=== PATIENT | female | born 1945 | race Caucasian/White ===

== ENCOUNTER → 2024-10-18 13:49 | Outpatient (REF) | payer MEDICARE, OTHER, SELFPAY | LOC: WDC 13:49 | PROVIDERS: ATTENDING PHYSICIAN Physician Assistant | DX: N95.9 Unspecified menopausal and perimenopausal disorder (principal); Z12.31 Encounter for screening mammogram for malignant neoplasm of breast | CPT/HCPCS: 77063; 77067; 77080 ==

== ENCOUNTER → 2024-10-29 10:59 | Outpatient (REF) | payer MEDICARE, OTHER, SELFPAY ==
[2024-10-29 11:58] LABS: % Basophils 0.3 % (0-2); % Eosinophils 2.6 % (0-6); % Immature Granulocytes 0.7 % (0-0.5); % Lymphocytes 21.6 % (20.5-51.1); % Monocytes 8.2 % (1.7-9.3); % Neutrophils 66.6 % (42.2-75.2); Absolute Eosinophils 0.2 10^3/uL (0-0.7); Absolute Lymphocytes 1.3 10^3/uL (1.2-3.4); Absolute Monocytes 0.5 10^3/uL (0.1-0.6); Absolute Neutrophils 3.9 10^3/uL (1.4-6.5); Hematocrit 31.5 % (37.0-47.0); Hemoglobin 9.8 g/dL (12.0-16.0); Mean Corp Hgb Conc. 31.1 g/dL (33.0-37.0); Mean Corpuscular Hgb 31.8 pg (27.0-31.0); Mean Corpuscular Volume 102.3 fL (81.0-99.0); Mean Platelet Volume 9.5 fL (7.4-10.4); Nucleated Red Blood Cells % 0 %; Platelet Count 201 10^3/uL (130-400); Red Blood Cell Count 3.08 10^6/uL (4.20-5.40); Red Cell Dist. Width 13.8 % (11.5-14.5); Reticulocyte Count 1.7 % (0.4-2.8); White Blood Cell Count 5.8 10^3/uL (4.8-10.8)
[2024-10-29 12:13] LABS: ALT (SGPT) 23 U/L (0-35); AST (SGOT) 30 U/L (14-36); Albumin 4.5 g/dl (3.5-5.0); Alkaline Phosphatase 54 U/L (38-126); Blood Urea Nitrogen 18 mg/dl (7-17); Calcium 9.3 mg/dl (8.4-10.2); Carbon Dioxide 25 mmol/L (22-30); Chloride 103 mmol/L (98-107); Glucose 109 mg/dl (70-99); Iron 91 ug/dl (37-170); LDH 233 U/L (120-246); Potassium 4.5 mmol/L (3.5-5.1); Sodium 140 mmol/L (135-145); Total Bilirubin 0.2 mg/dl (0.2-1.3); Total Protein 6.5 g/dl (6.3-8.2); eGFR > 60.00
[2024-10-29 12:19] LABS: Erythrocyte Sed Rate 32 mm/hour (0-20)
[2024-10-29 12:23] LABS: Percent Saturation 24 % (20-50); Total Iron Binding Capacity 370 ug/dl (265-497)
[2024-10-29 12:42] LABS: Ferritin 63.2 ng/ml (11.1-264.0)
[2024-10-29 13:13] LABS: Folate > 20.0 ng/ml (2.76-20); Vitamin B12 787 pg/ml (239-931)
== END ==
LOC: REG 10:59
PROVIDERS: ATTENDING PHYSICIAN Nurse Practitioner Primary Care; FAMILY PHYSICIAN Physician Assistant
DX: D50.8 Other iron deficiency anemias (principal); D51.9 Vitamin B12 deficiency anemia, unspecified; R63.4 Abnormal weight loss; R10.9 Unspecified abdominal pain
CPT/HCPCS: 36415; 80053; 82607; 82728; 82746; 83010; 83540; 83550; 83615; 83921; 85025; 85045; 85652; 86880

== ENCOUNTER → 2024-11-04 13:37 | Outpatient (REF) | payer MEDICARE, OTHER, SELFPAY | LOC: RAD 13:37 | PROVIDERS: ATTENDING PHYSICIAN Nurse Practitioner Primary Care; FAMILY PHYSICIAN Physician Assistant | DX: R10.9 Unspecified abdominal pain (principal); R63.4 Abnormal weight loss | CPT/HCPCS: 74178; Q9967 ==

== ENCOUNTER → 2025-06-09 06:51 | Outpatient (REF) | payer MEDICARE, OTHER, SELFPAY ==
[2025-06-09 07:21] VITALS: BP 137/71; BP_SYST 69
[2025-06-09 07:33] LABS: Hematocrit 28.3 % (37.0-47.0); Hemoglobin 9.3 g/dL (12.0-16.0); Mean Corp Hgb Conc. 32.9 g/dL (33.0-37.0); Mean Corpuscular Volume 96.3 fL (81.0-99.0); Nucleated Red Blood Cells % 0 %; Platelet Count 184 10^3/uL (130-400); Red Cell Dist. Width 14.6 % (11.5-14.5)
[2025-06-09 07:44] LABS: INR 0.96; PT 13.1 Sec (11.4-14.6)
[2025-06-09] MEDS: NSS (PRESERVATIVE FREE) 0.25 ML IV (08:00)
[2025-06-09] MEDS: ATIVAN 0.5 MG IV (08:01)
[2025-06-09] MEDS: FLUSH (NSS) 1 FLUSH IV (08:02)
[2025-06-09 08:55] VITALS: BP 128/61
== END ==
LOC: RADI 06:51
PROVIDERS: ATTENDING PHYSICIAN Internal Medicine Hematology & Oncology
DX: C90.00 Multiple myeloma not having achieved remission (principal); D51.9 Vitamin B12 deficiency anemia, unspecified; D50.8 Other iron deficiency anemias; D68.8 Other specified coagulation defects
CPT/HCPCS: 36415; 38222; 77012; 85025; 85610; 88305; 88311; 88312; 88313

== ENCOUNTER → 2025-07-14 16:20 | Outpatient (REF) | payer MEDICARE, OTHER, SELFPAY | LOC: RAD 16:20 | PROVIDERS: ATTENDING PHYSICIAN Internal Medicine Hematology & Oncology; FAMILY PHYSICIAN Physician Assistant | DX: D50.8 Other iron deficiency anemias (principal); D51.9 Vitamin B12 deficiency anemia, unspecified; R10.9 Unspecified abdominal pain; D64.9 Anemia, unspecified; C90.00 Multiple myeloma not having achieved remission | CPT/HCPCS: 77075 ==

== ENCOUNTER → 2025-07-24 07:43 | Outpatient (REF) | payer MEDICARE, OTHER, SELFPAY ==
[2025-07-24 09:14] LABS: Hematocrit 27.9 % (37.0-47.0); Hemoglobin 8.8 g/dL (12.0-16.0); Mean Corp Hgb Conc. 31.5 g/dL (33.0-37.0); Mean Corpuscular Volume 97.2 fL (81.0-99.0); Nucleated Red Blood Cells % 0.4 %; Platelet Count 188 10^3/uL (130-400); Red Cell Dist. Width 14.6 % (11.5-14.5)
[2025-07-24 10:37] LABS: ALT (SGPT) 23 U/L (0-35); AST (SGOT) 30 U/L (14-36); Albumin 4.6 g/dl (3.5-5.0); Alkaline Phosphatase 58 U/L (38-126); Blood Urea Nitrogen 13 mg/dl (7-17); Calcium 8.8 mg/dl (8.4-10.2); Carbon Dioxide 25 mmol/L (22-30); Chloride 108 mmol/L (98-107); Glucose 91 mg/dl (70-99); Potassium 4.1 mmol/L (3.5-5.1); Sodium 140 mmol/L (135-145); Total Protein 6.6 g/dl (6.3-8.2); eGFR > 60.00
== END ==
LOC: REG 07:43
PROVIDERS: ATTENDING PHYSICIAN Internal Medicine Hematology & Oncology; FAMILY PHYSICIAN Physician Assistant
DX: D50.8 Other iron deficiency anemias (principal); D51.9 Vitamin B12 deficiency anemia, unspecified; R63.4 Abnormal weight loss; R10.9 Unspecified abdominal pain; D64.9 Anemia, unspecified; C90.00 Multiple myeloma not having achieved remission
CPT/HCPCS: 36415; 80053; 85025

== ENCOUNTER → 2025-07-25 09:56 | Outpatient (REF) | payer MEDICARE, OTHER, SELFPAY ==
[2025-07-25 12:31] LABS: Hepatitis B Surface Antigen Negative (Negative)
== END ==
LOC: OIDL 09:56
PROVIDERS: ATTENDING PHYSICIAN Internal Medicine Hematology & Oncology
DX: D50.8 Other iron deficiency anemias (principal); D51.9 Vitamin B12 deficiency anemia, unspecified; R63.4 Abnormal weight loss; R10.9 Unspecified abdominal pain; D64.9 Anemia, unspecified; C90.00 Multiple myeloma not having achieved remission
CPT/HCPCS: 86704; 86706; 87340

== ENCOUNTER → 2025-07-31 07:29 | Outpatient (REF) | payer MEDICARE, OTHER, SELFPAY ==
[2025-07-31 08:51] LABS: Hematocrit 28.3 % (37.0-47.0); Hemoglobin 8.9 g/dL (12.0-16.0); Mean Corp Hgb Conc. 31.4 g/dL (33.0-37.0); Mean Corpuscular Volume 95.3 fL (81.0-99.0); Nucleated Red Blood Cells % 0.5 %; Red Cell Dist. Width 15.2 % (11.5-14.5)
[2025-07-31 09:26] LABS: Platelet Count 40 10^3/uL (130-400)
[2025-07-31 09:46] LABS: ALT (SGPT) 29 U/L (0-35); AST (SGOT) 29 U/L (14-36); Albumin 4.3 g/dl (3.5-5.0); Alkaline Phosphatase 70 U/L (38-126); Blood Urea Nitrogen 15 mg/dl (7-17); Calcium 8.8 mg/dl (8.4-10.2); Carbon Dioxide 23 mmol/L (22-30); Chloride 106 mmol/L (98-107); Glucose 90 mg/dl (70-99); Potassium 3.6 mmol/L (3.5-5.1); Sodium 139 mmol/L (135-145); Total Protein 6.5 g/dl (6.3-8.2); eGFR > 60.00
== END ==
LOC: REG 07:29
PROVIDERS: ATTENDING PHYSICIAN Internal Medicine Hematology & Oncology; FAMILY PHYSICIAN Physician Assistant
DX: D50.8 Other iron deficiency anemias (principal); D51.9 Vitamin B12 deficiency anemia, unspecified; R63.4 Abnormal weight loss; R10.9 Unspecified abdominal pain; D64.9 Anemia, unspecified; C90.00 Multiple myeloma not having achieved remission
CPT/HCPCS: 36415; 80053; 85025

== ENCOUNTER → 2025-08-07 08:54 | Outpatient (REF) | payer MEDICARE, OTHER, SELFPAY ==
[2025-08-07 10:07] LABS: Hematocrit 26.2 % (37.0-47.0); Hemoglobin 8.3 g/dL (12.0-16.0); Mean Corp Hgb Conc. 31.7 g/dL (33.0-37.0); Mean Corpuscular Volume 95.6 fL (81.0-99.0); Nucleated Red Blood Cells % 0 %; Platelet Count 116 10^3/uL (130-400); Red Cell Dist. Width 15.8 % (11.5-14.5)
[2025-08-07 11:24] LABS: ALT (SGPT) 21 U/L (0-35); AST (SGOT) 24 U/L (14-36); Albumin 4.0 g/dl (3.5-5.0); Alkaline Phosphatase 61 U/L (38-126); Blood Urea Nitrogen 20 mg/dl (7-17); Calcium 8.9 mg/dl (8.4-10.2); Carbon Dioxide 24 mmol/L (22-30); Chloride 106 mmol/L (98-107); Glucose 87 mg/dl (70-99); Potassium 4.2 mmol/L (3.5-5.1); Total Protein 6.2 g/dl (6.3-8.2); eGFR > 60.00
[2025-08-07 11:48] LABS: Sodium 136 mmol/L (135-145)
== END ==
LOC: REG 08:54
PROVIDERS: ATTENDING PHYSICIAN Internal Medicine Hematology & Oncology; FAMILY PHYSICIAN Physician Assistant
DX: D50.8 Other iron deficiency anemias (principal); D51.9 Vitamin B12 deficiency anemia, unspecified; R63.4 Abnormal weight loss; R10.9 Unspecified abdominal pain; D64.9 Anemia, unspecified; C90.00 Multiple myeloma not having achieved remission
CPT/HCPCS: 36415; 80053; 85025

== ENCOUNTER → 2025-08-08 14:50 | Outpatient (REF) | payer MEDICARE, OTHER, SELFPAY ==
[2025-08-08 15:56] LABS: Hematocrit 23.3 % (37.0-47.0); Hemoglobin 7.7 g/dL (12.0-16.0); Mean Corp Hgb Conc. 33.0 g/dL (33.0-37.0); Mean Corpuscular Volume 94.7 fL (81.0-99.0); Nucleated Red Blood Cells % 0.5 %; Platelet Count 120 10^3/uL (130-400); Red Cell Dist. Width 15.6 % (11.5-14.5)
[2025-08-08 16:00] LABS: Iron 64 ug/dl (37-170)
[2025-08-08 16:09] LABS: Total Iron Binding Capacity 347 ug/dl (265-497)
[2025-08-08 19:52] LABS: Ferritin 93.0 ng/ml (11.1-264.0)
== END ==
LOC: CLAB 14:50
PROVIDERS: ATTENDING PHYSICIAN Internal Medicine Hematology & Oncology
DX: R63.4 Abnormal weight loss (principal); D50.8 Other iron deficiency anemias; D51.9 Vitamin B12 deficiency anemia, unspecified; R10.9 Unspecified abdominal pain; D64.9 Anemia, unspecified; C90.00 Multiple myeloma not having achieved remission
CPT/HCPCS: 36415; 82728; 83540; 83550; 85025

== ENCOUNTER → 2025-08-14 08:14 | Outpatient (REF) | payer MEDICARE, OTHER, SELFPAY ==
[2025-08-14 08:57] LABS: Hematocrit 26.2 % (37.0-47.0); Hemoglobin 8.5 g/dL (12.0-16.0); Mean Corp Hgb Conc. 32.4 g/dL (33.0-37.0); Mean Corpuscular Volume 96.7 fL (81.0-99.0); Nucleated Red Blood Cells % 0.6 %; Platelet Count 156 10^3/uL (130-400); Red Cell Dist. Width 16.5 % (11.5-14.5)
[2025-08-14 11:21] LABS: ALT (SGPT) 18 U/L (0-35); AST (SGOT) 20 U/L (14-36); Albumin 4.1 g/dl (3.5-5.0); Alkaline Phosphatase 61 U/L (38-126); Blood Urea Nitrogen 10 mg/dl (7-17); Calcium 8.4 mg/dl (8.4-10.2); Carbon Dioxide 24 mmol/L (22-30); Chloride 104 mmol/L (98-107); Glucose 89 mg/dl (70-99); HDL Cholesterol 60 mg/dl; LDL Cholesterol, Calculated 77 mg/dl; Potassium 3.9 mmol/L (3.5-5.1); Sodium 137 mmol/L (135-145); Total Protein 6.2 g/dl (6.3-8.2); Very Low Density Lipoprotein 22 mg/dl (0-30); eGFR > 60.00
[2025-08-14 11:41] LABS: TSH 3.72 uIU/ml (0.47-4.68)
== END ==
LOC: REG 08:14
PROVIDERS: ATTENDING PHYSICIAN Internal Medicine Hematology & Oncology; FAMILY PHYSICIAN Physician Assistant
DX: D50.8 Other iron deficiency anemias (principal); D51.9 Vitamin B12 deficiency anemia, unspecified; R63.4 Abnormal weight loss; R10.9 Unspecified abdominal pain; D64.9 Anemia, unspecified; C90.00 Multiple myeloma not having achieved remission; I10 Essential (primary) hypertension; Z00.00 Encounter for general adult medical examination without abnormal findings; E03.9 Hypothyroidism, unspecified; E78.5 Hyperlipidemia, unspecified; F32.9 Major depressive disorder, single episode, unspecified
CPT/HCPCS: 80053; 80061; 84439; 84443; 85025

== ENCOUNTER → 2025-08-21 07:37 | Outpatient (REF) | payer MEDICARE, OTHER, SELFPAY ==
[2025-08-21 08:43] LABS: ALT (SGPT) 19 U/L (0-35); AST (SGOT) 18 U/L (14-36); Albumin 3.7 g/dl (3.5-5.0); Alkaline Phosphatase 55 U/L (38-126); Blood Urea Nitrogen 8 mg/dl (7-17); Calcium 8.0 mg/dl (8.4-10.2); Carbon Dioxide 25 mmol/L (22-30); Chloride 106 mmol/L (98-107); Glucose 92 mg/dl (70-99); Potassium 3.3 mmol/L (3.5-5.1); Sodium 138 mmol/L (135-145); Total Protein 5.7 g/dl (6.3-8.2); eGFR > 60.00
[2025-08-21 09:27] LABS: Hematocrit 27.5 % (37.0-47.0); Hemoglobin 8.7 g/dL (12.0-16.0); Mean Corp Hgb Conc. 31.6 g/dL (33.0-37.0); Mean Corpuscular Volume 99.3 fL (81.0-99.0); Nucleated Red Blood Cells % 2.9 %; Platelet Count 156 10^3/uL (130-400); Red Cell Dist. Width 18.5 % (11.5-14.5)
== END ==
LOC: REG 07:37
PROVIDERS: ATTENDING PHYSICIAN Internal Medicine Hematology & Oncology; FAMILY PHYSICIAN Physician Assistant
DX: D50.8 Other iron deficiency anemias (principal); D51.9 Vitamin B12 deficiency anemia, unspecified; R63.4 Abnormal weight loss; R10.9 Unspecified abdominal pain; D64.9 Anemia, unspecified; C90.00 Multiple myeloma not having achieved remission
CPT/HCPCS: 36415; 80053; 85025

== ENCOUNTER → 2025-08-28 07:32 | Outpatient (REF) | payer MEDICARE, OTHER, SELFPAY ==
[2025-08-28 08:25] LABS: ALT (SGPT) 21 U/L (0-35); AST (SGOT) 19 U/L (14-36); Albumin 3.5 g/dl (3.5-5.0); Alkaline Phosphatase 62 U/L (38-126); Blood Urea Nitrogen 7 mg/dl (7-17); Calcium 8.0 mg/dl (8.4-10.2); Carbon Dioxide 26 mmol/L (22-30); Chloride 105 mmol/L (98-107); Glucose 90 mg/dl (70-99); Potassium 3.8 mmol/L (3.5-5.1); Sodium 136 mmol/L (135-145); Total Protein 5.6 g/dl (6.3-8.2); eGFR > 60.00
[2025-08-28 09:06] LABS: Hematocrit 29.1 % (37.0-47.0); Hemoglobin 9.2 g/dL (12.0-16.0); Mean Corp Hgb Conc. 31.6 g/dL (33.0-37.0); Mean Corpuscular Volume 101.0 fL (81.0-99.0); Nucleated Red Blood Cells % 1.4 %; Platelet Count 147 10^3/uL (130-400); Red Cell Dist. Width 19.3 % (11.5-14.5)
== END ==
LOC: REG 07:32
PROVIDERS: ATTENDING PHYSICIAN Internal Medicine Hematology & Oncology; FAMILY PHYSICIAN Physician Assistant
DX: D50.8 Other iron deficiency anemias (principal); D51.9 Vitamin B12 deficiency anemia, unspecified; R63.4 Abnormal weight loss; R10.9 Unspecified abdominal pain; D64.9 Anemia, unspecified; C90.00 Multiple myeloma not having achieved remission
CPT/HCPCS: 36415; 80053; 85025

== ENCOUNTER → 2025-09-03 07:34 | Outpatient (REF) | payer MEDICARE, OTHER, SELFPAY ==
[2025-09-03 09:53] LABS: ALT (SGPT) 25 U/L (0-35); AST (SGOT) 21 U/L (14-36); Albumin 3.5 g/dl (3.5-5.0); Alkaline Phosphatase 71 U/L (38-126); Blood Urea Nitrogen 9 mg/dl (7-17); Calcium 7.9 mg/dl (8.4-10.2); Carbon Dioxide 23 mmol/L (22-30); Chloride 108 mmol/L (98-107); Glucose 108 mg/dl (70-99); Potassium 4.4 mmol/L (3.5-5.1); Sodium 138 mmol/L (135-145); Total Protein 5.8 g/dl (6.3-8.2); eGFR > 60.00
[2025-09-03 10:13] LABS: Hematocrit 31.5 % (37.0-47.0); Hemoglobin 9.9 g/dL (12.0-16.0); Mean Corp Hgb Conc. 31.4 g/dL (33.0-37.0); Mean Corpuscular Volume 100.3 fL (81.0-99.0); Nucleated Red Blood Cells % 0 %; Platelet Count 205 10^3/uL (130-400); Red Cell Dist. Width 18.8 % (11.5-14.5)
== END ==
LOC: REG 07:34
PROVIDERS: ATTENDING PHYSICIAN Internal Medicine Hematology & Oncology; FAMILY PHYSICIAN Physician Assistant
DX: D50.8 Other iron deficiency anemias (principal); D51.9 Vitamin B12 deficiency anemia, unspecified; R63.4 Abnormal weight loss; R10.9 Unspecified abdominal pain; D64.9 Anemia, unspecified; C90.00 Multiple myeloma not having achieved remission
CPT/HCPCS: 36415; 80053; 85025

== ENCOUNTER → 2025-09-11 08:09 | Outpatient (REF) | payer MEDICARE, OTHER, SELFPAY ==
[2025-09-11 09:08] LABS: Hematocrit 32.1 % (37.0-47.0); Hemoglobin 10.1 g/dL (12.0-16.0); Mean Corp Hgb Conc. 31.5 g/dL (33.0-37.0); Mean Corpuscular Volume 98.5 fL (81.0-99.0); Nucleated Red Blood Cells % 0 %; Platelet Count 318 10^3/uL (130-400); Red Cell Dist. Width 18.6 % (11.5-14.5)
[2025-09-11 10:33] LABS: ALT (SGPT) 22 U/L (0-35); AST (SGOT) 20 U/L (14-36); Albumin 3.6 g/dl (3.5-5.0); Alkaline Phosphatase 68 U/L (38-126); Blood Urea Nitrogen 9 mg/dl (7-17); Calcium 8.2 mg/dl (8.4-10.2); Carbon Dioxide 27 mmol/L (22-30); Chloride 107 mmol/L (98-107); Glucose 90 mg/dl (70-99); Potassium 3.9 mmol/L (3.5-5.1); Sodium 138 mmol/L (135-145); Total Protein 5.8 g/dl (6.3-8.2); eGFR > 60.00
== END ==
LOC: REG 08:09
PROVIDERS: ATTENDING PHYSICIAN Internal Medicine Hematology & Oncology; FAMILY PHYSICIAN Physician Assistant
DX: D50.8 Other iron deficiency anemias (principal); D51.9 Vitamin B12 deficiency anemia, unspecified; R63.4 Abnormal weight loss; R10.9 Unspecified abdominal pain; D64.9 Anemia, unspecified; C90.00 Multiple myeloma not having achieved remission
CPT/HCPCS: 36415; 80053; 85025

== ENCOUNTER → 2025-09-18 07:53 | Outpatient (REF) | payer MEDICARE, OTHER, SELFPAY ==
[2025-09-18 09:11] LABS: Hematocrit 35.8 % (37.0-47.0); Hemoglobin 10.9 g/dL (12.0-16.0); Mean Corp Hgb Conc. 30.4 g/dL (33.0-37.0); Mean Corpuscular Volume 102.9 fL (81.0-99.0); Nucleated Red Blood Cells % 0 %; Platelet Count 275 10^3/uL (130-400); Red Cell Dist. Width 18.6 % (11.5-14.5)
[2025-09-18 09:44] LABS: ALT (SGPT) 24 U/L (0-35); AST (SGOT) 20 U/L (14-36); Albumin 3.8 g/dl (3.5-5.0); Alkaline Phosphatase 60 U/L (38-126); Blood Urea Nitrogen 8 mg/dl (7-17); Calcium 8.4 mg/dl (8.4-10.2); Carbon Dioxide 27 mmol/L (22-30); Chloride 105 mmol/L (98-107); Glucose 91 mg/dl (70-99); Potassium 4.1 mmol/L (3.5-5.1); Sodium 136 mmol/L (135-145); Total Protein 6.2 g/dl (6.3-8.2); eGFR > 60.00
== END ==
LOC: REG 07:53
PROVIDERS: ATTENDING PHYSICIAN Internal Medicine Hematology & Oncology; FAMILY PHYSICIAN Physician Assistant
DX: D50.8 Other iron deficiency anemias (principal); D51.9 Vitamin B12 deficiency anemia, unspecified; R63.4 Abnormal weight loss; R10.9 Unspecified abdominal pain; D64.9 Anemia, unspecified; C90.00 Multiple myeloma not having achieved remission
CPT/HCPCS: 36415; 80053; 85025

== ENCOUNTER → 2025-09-24 07:50 | Outpatient (REF) | payer MEDICARE, OTHER, SELFPAY ==
[2025-09-24 09:56] LABS: ALT (SGPT) 25 U/L (0-35); AST (SGOT) 20 U/L (14-36); Albumin 3.7 g/dl (3.5-5.0); Alkaline Phosphatase 56 U/L (38-126); Blood Urea Nitrogen 6 mg/dl (7-17); Calcium 7.9 mg/dl (8.4-10.2); Carbon Dioxide 27 mmol/L (22-30); Chloride 104 mmol/L (98-107); Glucose 78 mg/dl (70-99); Potassium 3.5 mmol/L (3.5-5.1); Sodium 138 mmol/L (135-145); Total Protein 5.7 g/dl (6.3-8.2); eGFR > 60.00
[2025-09-24 10:06] LABS: Hematocrit 37.6 % (37.0-47.0); Hemoglobin 11.3 g/dL (12.0-16.0); Mean Corp Hgb Conc. 30.1 g/dL (33.0-37.0); Mean Corpuscular Volume 104.4 fL (81.0-99.0); Nucleated Red Blood Cells % 0 %; Platelet Count 211 10^3/uL (130-400); Red Cell Dist. Width 18.1 % (11.5-14.5)
== END ==
LOC: REG 07:50
PROVIDERS: ATTENDING PHYSICIAN Internal Medicine Hematology & Oncology; FAMILY PHYSICIAN Physician Assistant
DX: D50.8 Other iron deficiency anemias (principal); D51.9 Vitamin B12 deficiency anemia, unspecified; R63.4 Abnormal weight loss; R10.9 Unspecified abdominal pain; D64.9 Anemia, unspecified; C90.00 Multiple myeloma not having achieved remission
CPT/HCPCS: 36415; 80053; 85025

== ENCOUNTER → 2025-10-02 08:01 | Outpatient (REF) | payer MEDICARE, OTHER, SELFPAY ==
[2025-10-02 09:19] LABS: Hematocrit 38.2 % (37.0-47.0); Hemoglobin 12.4 g/dL (12.0-16.0); Mean Corp Hgb Conc. 32.5 g/dL (33.0-37.0); Mean Corpuscular Volume 100.3 fL (81.0-99.0); Nucleated Red Blood Cells % 0 %; Platelet Count 252 10^3/uL (130-400); Red Cell Dist. Width 16.6 % (11.5-14.5)
[2025-10-02 12:35] LABS: ALT (SGPT) 28 U/L (0-35); AST (SGOT) 22 U/L (14-36); Albumin 4.0 g/dl (3.5-5.0); Alkaline Phosphatase 55 U/L (38-126); Blood Urea Nitrogen 9 mg/dl (7-17); Calcium 8.7 mg/dl (8.4-10.2); Carbon Dioxide 28 mmol/L (22-30); Chloride 104 mmol/L (98-107); Glucose 86 mg/dl (70-99); Iron 82 ug/dl (37-170); Potassium 4.2 mmol/L (3.5-5.1); Sodium 139 mmol/L (135-145); Total Protein 6.1 g/dl (6.3-8.2); eGFR > 60.00
[2025-10-02 12:44] LABS: Total Iron Binding Capacity 315 ug/dl (265-497)
[2025-10-02 13:08] LABS: Ferritin 234.0 ng/ml (11.1-264.0)
== END ==
LOC: REG 08:01
PROVIDERS: ATTENDING PHYSICIAN Internal Medicine Hematology & Oncology; FAMILY PHYSICIAN Physician Assistant
DX: D50.8 Other iron deficiency anemias (principal); D51.9 Vitamin B12 deficiency anemia, unspecified; R63.4 Abnormal weight loss; R10.9 Unspecified abdominal pain; D64.9 Anemia, unspecified; C90.00 Multiple myeloma not having achieved remission; D46.9 Myelodysplastic syndrome, unspecified
CPT/HCPCS: 36415; 80053; 82728; 82784; 83521; 83540; 83550; 84155; 84165; 85025; 86334

== ENCOUNTER → 2025-10-09 07:19 | Outpatient (REF) | payer MEDICARE, OTHER, SELFPAY ==
[2025-10-09 08:27] LABS: Hematocrit 39.7 % (37.0-47.0); Hemoglobin 12.4 g/dL (12.0-16.0); Mean Corp Hgb Conc. 31.2 g/dL (33.0-37.0); Mean Corpuscular Volume 100.5 fL (81.0-99.0); Nucleated Red Blood Cells % 0 %; Platelet Count 249 10^3/uL (130-400); Red Cell Dist. Width 16.0 % (11.5-14.5)
[2025-10-09 09:01] LABS: ALT (SGPT) 29 U/L (0-35); AST (SGOT) 21 U/L (14-36); Albumin 4.0 g/dl (3.5-5.0); Alkaline Phosphatase 57 U/L (38-126); Blood Urea Nitrogen 7 mg/dl (7-17); Calcium 8.5 mg/dl (8.4-10.2); Carbon Dioxide 29 mmol/L (22-30); Chloride 102 mmol/L (98-107); Glucose 83 mg/dl (70-99); Potassium 3.9 mmol/L (3.5-5.1); Sodium 134 mmol/L (135-145); Total Protein 6.2 g/dl (6.3-8.2); eGFR > 60.00
== END ==
LOC: REG 07:19
PROVIDERS: ATTENDING PHYSICIAN Internal Medicine Hematology & Oncology; FAMILY PHYSICIAN Physician Assistant
DX: D50.8 Other iron deficiency anemias (principal); D51.9 Vitamin B12 deficiency anemia, unspecified; R63.4 Abnormal weight loss; R10.9 Unspecified abdominal pain; D64.9 Anemia, unspecified; C90.00 Multiple myeloma not having achieved remission
CPT/HCPCS: 36415; 80053; 85025

== ENCOUNTER → 2025-10-16 07:33 | Outpatient (REF) | payer MEDICARE, OTHER, SELFPAY ==
[2025-10-16 08:14] LABS: Hematocrit 38.0 % (37.0-47.0); Hemoglobin 12.3 g/dL (12.0-16.0); Mean Corp Hgb Conc. 32.4 g/dL (33.0-37.0); Mean Corpuscular Volume 97.2 fL (81.0-99.0); Nucleated Red Blood Cells % 0 %; Platelet Count 210 10^3/uL (130-400); Red Cell Dist. Width 15.5 % (11.5-14.5)
[2025-10-16 08:47] LABS: ALT (SGPT) 25 U/L (0-35); AST (SGOT) 22 U/L (14-36); Albumin 4.0 g/dl (3.5-5.0); Alkaline Phosphatase 52 U/L (38-126); Blood Urea Nitrogen 7 mg/dl (7-17); Calcium 8.5 mg/dl (8.4-10.2); Carbon Dioxide 28 mmol/L (22-30); Chloride 107 mmol/L (98-107); Glucose 80 mg/dl (70-99); Potassium 4.1 mmol/L (3.5-5.1); Sodium 137 mmol/L (135-145); Total Protein 6.1 g/dl (6.3-8.2); eGFR > 60.00
== END ==
LOC: REG 07:33
PROVIDERS: ATTENDING PHYSICIAN Internal Medicine Hematology & Oncology; FAMILY PHYSICIAN Physician Assistant
DX: D50.8 Other iron deficiency anemias (principal); D51.9 Vitamin B12 deficiency anemia, unspecified; R63.4 Abnormal weight loss; R10.9 Unspecified abdominal pain; D64.9 Anemia, unspecified; C90.00 Multiple myeloma not having achieved remission
CPT/HCPCS: 36415; 80053; 85025

== ENCOUNTER 2025-10-22 09:50 | Inpatient (IN) | payer MEDICARE, OTHER, SELFPAY ==
[2025-10-21 09:03] VITALS: BP 118/67
[2025-10-21 09:37] VITALS: BMI 26.2
--- NOTE | 2025-10-21 09:40 | ED.MUSCINJ ---
HPI-Injury
<Guillermo Chaves PA-C - Last Filed: 10/21/25 14:20>
General
Chief Complaint: Fall
Source: patient
Exam Limitations: none
Time Seen by Provider: 10/21/25 09:23
History of Present Illness-Injury
Initial Injury comments:
80 year old female with history of multiple myeloma presents with pain to left arm and foot after tripping and falling into a hard chair this morning. No head strike. No thinners. No chest or abdominal pain. No other complaints at this time.
Past History
<DAINA Bailey Last Filed: 10/21/25 14:20>
Past History
ED Past Medical History: HTN, Hypercholesterolemia and Hypothyroidism
ED Past Surgical History: None
Social History
Tobacco: Non-smoker
Alcohol: None
Drug: None
Personal:
Living: with family
Phy Exam
<Guillermo Chaves PA-C - Last Filed: 10/21/25 14:20>
Physical Exam
Physical Exam:
General: Uncomfortable appearing female no acute respiratory distress
HEENT: Normal cephalic atraumatic
Heart: Regular rate and rhythm
Lungs: Clear no wheeze
Musculoskeletal exam: Spine is nontender. There is swelling and tenderness about the humerus on the left side. The left foot is also tender over the distal fibula and dorsal lateral foot. There is overlying ecchymosis on the foot.
Vascular: 2+ radial pulse left wrist function to radial nerve intact to left hand
Neurologic: Good sensation to the left hand and foot
Injury Course
<Guillermo Chaves PA-C - Last Filed: 10/21/25 14:20>
Orders/Labs/Results
Orders:
Orders
10/21/25 09:38
HYDROmorphone [Dilaudid] 0.5 mg IV NOW STA
CR Ankle - Left Min 3 Views Urgent
Comment:
Reason For Exam: fall
CR Foot - Left Min 3 Views Urgent
Comment:
Reason For Exam: fall
CR Humerus - Left Min 2 Views* Urgent
Comment:
Reason For Exam: fall
10/21/25 10:13
CR Hip - RT w/wo Pel 2-3 Vw* Urgent
Comment:
Reason For Exam: pain after fall
Include a pelvis x-ray?: Yes
10/21/25 12:03
HYDROmorphone [Dilaudid] 0.5 mg IV NOW STA
10/21/25 13:49
Complete Blood Count/With Diff Urgent
Comprehensive Metabolic Panel Urgent
Abnormal Lab Results
10/21/25
13:49
WBC 2.0 L* 10^3/uL
(4.8-10.8)
RBC 3.55 L 10^6/uL
(4.20-5.40)
Hgb 11.2 L g/dL
(12.0-16.0)
Hct 33.7 L %
(37.0-47.0)
MCH 31.5 H pg
(27.0-31.0)
RDW 15.2 H %
(11.5-14.5)
Absolute Neuts (auto) 1.2 L 10^3/uL
(1.4-6.5)
Absolute Lymphs (auto) 0.3 L 10^3/uL
(1.2-3.4)
Lymphocytes % 16.3 L %
(20.5-51.1)
Monocytes % 19.7 H %
(1.7-9.3)
Sodium 132 L mmol/L
(135-145)
Glucose 103 H mg/dl
(70-99)
Calcium 7.8 L mg/dl
(8.4-10.2)
Total Protein 5.3 L g/dl
(6.3-8.2)
10/21/25 13:49
10/21/25 13:49
<Franky Sneed, DO - Last Filed: 10/21/25 14:11>
Orders/Labs/Results
Orders:
Orders
10/21/25 09:38
HYDROmorphone [Dilaudid] 0.5 mg IV NOW STA
CR Ankle - Left Min 3 Views Urgent
Comment:
Reason For Exam: fall
CR Foot - Left Min 3 Views Urgent
Comment:
Reason For Exam: fall
CR Humerus - Left Min 2 Views* Urgent
Comment:
Reason For Exam: fall
10/21/25 10:13
CR Hip - RT w/wo Pel 2-3 Vw* Urgent
Comment:
Reason For Exam: pain after fall
Include a pelvis x-ray?: Yes
10/21/25 12:03
HYDROmorphone [Dilaudid] 0.5 mg IV NOW STA
10/21/25 13:49
Complete Blood Count/With Diff Urgent
Comprehensive Metabolic Panel Urgent
Abnormal Lab Results
10/21/25
13:49
WBC 2.0 L* 10^3/uL
(4.8-10.8)
RBC 3.55 L 10^6/uL
(4.20-5.40)
Hgb 11.2 L g/dL
(12.0-16.0)
Hct 33.7 L %
(37.0-47.0)
MCH 31.5 H pg
(27.0-31.0)
RDW 15.2 H %
(11.5-14.5)
Absolute Neuts (auto) 1.2 L 10^3/uL
(1.4-6.5)
Absolute Lymphs (auto) 0.3 L 10^3/uL
(1.2-3.4)
Lymphocytes % 16.3 L %
(20.5-51.1)
Monocytes % 19.7 H %
(1.7-9.3)
Sodium 132 L mmol/L
(135-145)
Glucose 103 H mg/dl
(70-99)
Calcium 7.8 L mg/dl
(8.4-10.2)
Total Protein 5.3 L g/dl
(6.3-8.2)
10/21/25 13:49
10/21/25 13:49
<Guillermo Chaves PA-C - Last Filed: 10/21/25 14:20>
MDM/Problems Addressed
Differential Diagnosis Includes:
Left arm and foot and ankle pain after mechanical fall. Consider fracture versus contusion versus sprains. X-rays left humerus left ankle and foot pending.
<Guillermo Chaves PA-C - Last Filed: 10/21/25 14:20>
*Pulse Oximetry
SaO2: 100
Oxygen Mode of Delivery: Room air
Patient hypoxic: no
*Critical Care Note
Total Time (30-74mins, 75-104mins- exclusive of procedures): Not Applicable
<Guillermo Chaves PA-C - Last Filed: 10/21/25 14:20>
Update Note
Update Note:
X-rays demonstrate spiral fracture of midshaft of left humerus as well as a fracture of the base of the fifth metatarsal as well as nondisplaced fracture of the distal fibula on the left side. I reviewed these findings with orthopedics who saw the
x-rays. They recommended splint application and sling for the left upper extremity as well as weightbearing as tolerated within the boot to the left leg. I applied the boot to the left leg I applied a coaptation to the left arm. She is unable to
safely function and ambulate at home. Will keep in hospital for further treatment
ED Attending Note
<Guillermo Chaves PA-C - Last Filed: 10/21/25 14:20>
-
Portions of this chart may have been created with voice recognition software.� Occasional wrong word or��sound alike� substitutions may have occurred due to the inherent limitations of voice recognition software.
<Franky Sneed DO - Last Filed: 10/21/25 14:11>
ED Attending Note
Patient seen and examined by attending physician: Yes
I performed the substantive portion of visit, reviewed & personally made and approve the management plan that is documented in note by myself or BETITO.: Yes
ED Attending Note:
Seen with PA examined independently 80-year-old female history of myeloma followed by Dr. Billy hypertension slip and fall she has a midshaft humerus fracture fibular fracture metatarsal fracture will check labs, may require admission for analgesia
physical therapy and placement
Discharge Plan
Departure
Patient Disposition: Admit
Date of Disposition: 10/21/25
Time of Disposition: 14:19
Presentation/result/management discussed w/ accepting MD/DO: Hospitalist
Discharge Problem:
Fracture of humeral shaft, closed, Fracture of 5th metatarsal, Fracture of distal end of fibula
Prescriptions:
No Action
atorvastatin [Lipitor] 40 mg Tablet
40 mg PO DAILY
amlodipine [Norvasc] 5 mg Tablet
5 mg PO DAILY
levothyroxine [Synthroid] 88 mcg Tablet
88 mcg PO DAILY
sertraline 50 mg Tablet
50 mg PO QPM
Theragen Tablet
1 tab PO DAILY
PreserVision AREDS 2,148 mcg-113 mg-45 mg-17.4mg Tablet
1 tab PO BID
acyclovir 400 mg Tablet
400 mg PO DAILY
dexamethasone 4 mg Tablet
4 mg PO DIRECTED
Rx Instructions:
take one tablet the day of treat, 2 days after (due monday and monday)
lenalidomide 15 mg Capsule
15 mg PO DIRECTED
Rx Instructions:
take for 21 days on and 7 days off, patient takes around dinner time
Referrals:
Tonia Hopson PA-C [Family Provider, Internal Medicine]
Interventions
Interventions:
*Risk Screen - Suicide Last Done: 10/21/25 09:03
*General Assessment Last Done: 10/21/25 09:03
*Neglect/Abuse Screening Last Done: 10/21/25 10:20
*ED- Fall Risk Assessment Last Done: 10/21/25 09:03
*ED COVID-19 Vaccine History Last Done: 10/21/25 09:03
*ED Influenza Vaccine History Last Done: 10/21/25 09:03
ED-Musculoskeletal Assessment Last Done: 10/21/25 09:37
ED- Neurological Assessment Last Done: 10/21/25 09:37
ED-Skin Assessment Last Done: 10/21/25 09:37
Discharge Date and Time
Print Language: SETSWANA
[2025-10-21 09:48] VITALS: BP 128/64
[2025-10-21] MEDS: DILAUDID 0.5 MG IV ×2 (09:51→12:10)
[2025-10-21 10:00] VITALS: BP 101/52
[2025-10-21 14:13] LABS: ALT (SGPT) 27 U/L (0-35); AST (SGOT) 23 U/L (14-36); Albumin 3.5 g/dl (3.5-5.0); Alkaline Phosphatase 51 U/L (38-126); Blood Urea Nitrogen 11 mg/dl (7-17); Calcium 7.8 mg/dl (8.4-10.2); Carbon Dioxide 26 mmol/L (22-30); Chloride 102 mmol/L (98-107); Estimated Creatinine Clearance 61 ml/min; Glucose 103 mg/dl (70-99); Hematocrit 33.7 % (37.0-47.0); Hemoglobin 11.2 g/dL (12.0-16.0); Mean Corp Hgb Conc. 33.2 g/dL (33.0-37.0); Mean Corpuscular Volume 94.9 fL (81.0-99.0); Nucleated Red Blood Cells % 0 %; Platelet Count 166 10^3/uL (130-400); Potassium 3.8 mmol/L (3.5-5.1); Red Cell Dist. Width 15.2 % (11.5-14.5); Sodium 132 mmol/L (135-145); Total Protein 5.3 g/dl (6.3-8.2); eGFR > 60.00
--- NOTE | 2025-10-21 14:21 | HPS.HSE ---
Family Physician
-
Family Physician: Tonia Hopson
Chief Complaint
-
mechanical fall
History of Present Illness
Patient is a 80-year-old female with past medical history significant for hypertension, hyperlipidemia, GERD, depression and multiple myeloma who presented to [facility] ED for evaluation post mechanical fall. Patient reports that she tripped an fell
after placing ruber soled slippers on. She landed on a chair. Denies a head strike or LOC. She complains of pain to left and and foot.
Medical History
Past Medical History
Past Medical History: Reports Other
Additional Past Medical History:
hypertension
hyperlipidemia
GERD
depression
multiple myeloma
macular degeneration
iron deficiency anemia
Past Surgical History: Reports Other
Additional Past Surgical History:
Breast biopsy-benign
colonoscopy(2007)
D and C
cataract surgery
Social History
Tobacco: Non-smoker
Alcohol: Occasional
Drug: None
Living: With Family
Employment: Retired
Family History
Family History: Not pertinent
Allergies / Home Medications
Allergies reflects when Allergies were last updated in [employer].
Home Medications with original date entered in [employer]
Allergy/Medication List:
Allergies
Allergy/AdvReac Type Severity Reaction Status Date / Time
No Known Allergies Allergy Verified 10/21/25 09:06
Home Medications
amlodipine 5 mg tablet (Norvasc) 5 mg PO DAILY Blood Pressure 11/23/23
atorvastatin 40 mg tablet (Lipitor) 40 mg PO DAILY High Cholesterol 11/23/23
levothyroxine 88 mcg tablet (Synthroid) 88 mcg PO DAILY Thyroid 11/23/23
sertraline 50 mg tablet 50 mg PO QPM Mental Health/Anxiety 11/23/23
therapeutic multivitamin 1 tab PO DAILY Supplement 11/23/23
vitamins A,C,W-bvhz-yqknrr 2,148 mcg-113 mg-45 mg-17.4 mg tablet (PreserVision AREDS) 1 tab PO BID Supplement 11/23/23
acyclovir 400 mg tablet 400 mg PO DAILY 10/21/25
dexamethasone 4 mg tablet 4 mg PO DIRECTED 10/21/25
lenalidomide 15 mg capsule 15 mg PO DIRECTED 10/21/25
Review of Systems
-
History Source: Patient
Constitutional: Denies Fever or Chills
EENT: Denies Sore Throat
Respiratory: Denies Cough, Hemoptysis or Trouble Breathing
Cardiac: Denies Chest Pain, Diaphoresis, Palpitations or Syncope
Abdomen/GI: Denies Abdominal Pain, Nausea, Vomiting or Diarrhea
: Denies Dysuria, Frequency or Urgency
Musculoskeletal: Reports Other (Left arm and left foot pain )
Skin: Denies Rash
Neurological: Denies Dizzy, Headache, Weakness or Numbness
Endocrine: Denies Polyuria or Polydipsia
Physical Exam
Vital Signs
Vital Signs
Pulse Resp BP Pulse Ox
59 20 101/52 100
10/21/25 10:15 10/21/25 10:15 10/21/25 10:00 10/21/25 10:15
Physical Exam
General: Well Developed, Well Nourished, No Apparent Distress, Comfortable and Conversant
HEENT: NormoCephalic, Moist mucous membranes, PERRLA, Nose Appears Normal and Ears Appear Normal
Respiratory: Clear and Non Labored Respirations; No Wheezes, Rales or Rhonchi
Cardiac: Regular Rhythm; No Murmur, Rub, Gallop or Peripheral Edema
GI: Soft, Non Tender, Non Distended and Normal Bowel Sounds
Musculoskeletal: No Clubbing, No Cyanosis and Other (left upper extremity splint and sling in place; Left lower extremity boot in place )
Skin: Warm and IV/Catheter Site
Neuro: Awake and AO x 3
Psych: Calm and Intact Judgment/Insight
Laboratory Results
-
10/21/25 13:49
10/21/25 13:49
Laboratory Results
Total Bilirubin 0.4 mg/dl (0.2-1.3) 10/21/25 13:49
AST 23 U/L (14-36) 10/21/25 13:49
ALT 27 U/L (0-35) 10/21/25 13:49
Alkaline Phosphatase 51 U/L (38-126) 10/21/25 13:49
Data Reviewed
-
Diagnostic Radiology: Report Reviewed by me
Lab Data: Labs Reviewed by me (WBC 2.0, hgb 11.2, hct 33.7, Na 132, Ca 7.8 (corrected to 8.2) )
Impression/Plan
-
IMPRESSION/PLAN:
#mechanical fall
#Fracture of 5th metatarsal
#Fracture of distal end of fibula
#Fracture of humeral shaft
WBC 2.0, hgb 11.2, hct 33.7, Na 132, Ca 7.8 (corrected to 8.2)
Left Ankle/Foot x-ray: There is a fracture through the distal left fibula without significant displacement.
Fracture involving the proximal base of the left fifth metatarsal bone, with mild distraction.
Left Humerus x-ray: Fracture of the proximal to mid shaft of the left humerus.
Right Hip x-ray: No evidence of acute fracture or dislocation.
If there are persistent clinical symptoms and further imaging evaluation is desired, consider CT or MRI.
- Admit to med/surg
- ED placed splint and sling to LUE and boot to LLE per ortho recommendations
- weight bearing as tolerated
- Consult orthopedics
- Consult PT/OT
- Consult case management
#hypertension
patient reports has been on hold as she has been more hypotensive during treatments, last took about 6 weeks ago
- hold amlodipine
- monitor VS
#hyperlipidemia
- continue atorvastatin
#hypothyroidism
- continue levothyroxine
#depression
- continue sertraline
#multiple myeloma
follows with Dr. Billy
middle of second round of treatment
- continue acyclovir
- continue to follow up out patient
#GERD
#macular degeneration
#iron deficiency anemia
Code status: full code
DVT prophylaxis: heparin sq
--- NOTE | 2025-10-21 14:26 | W.PN.UPDATE ---
Update Note
Progress Note Update
This note serves as an addendum to the H&P by finisher accordion BETITO�
Odalis Dunlap
HPI
80F
PHX myeloma, HTN, Hypercholesterolemia and Hypothyroidism
Seen at ER
- report tripped suggestive of , mechanical fall and landed on Lt side
- denied LoC
- denied head strike
- sustained Lt humerus fracture + left fibular fracture + left 5th metatarsal fracture.
- Per ER , Ortho suggested splint placement to arm and boot with weight bearing as tolerated to foot and planning on seeing the patient as outpatient
- she is unable to function safely at home with multiple injuries.
Relevant VS
Pulse Resp BP Pulse Ox
59 20 101/52 100
10/21/25 10:15 10/21/25 10:15 10/21/25 10:00 10/21/25 10:15
PE
Gen: uncomfortable due to acute pain
HEENT: anicteric , atraumatic
Neck: supple
Lungs: CTA
Cor: RRR
Abdomen:�soft benign
AUTOMOTIVE REFINISH TECHNICIAN: Grossly intact
MS:
Non tender Spin
swelling and tenderness about the humerus on the left side
eft foot is also tender over the distal fibula and dorsal lateral foot with overlying ecchymosis
Psych:nl mood and & affect
Relevant data�
10/02/25 10/16/25 10/21/25
08:19 07:43 13:49
WBC 2.3 L* 3.8 L 2.0 L*
Hgb 12.4 12.3 11.2 L
Plt Count 252 210 166 D
10/21/25
13:49
Sodium 132 L
Potassium 3.8
Creatinine 0.7
eGFR > 60.00
Hip and Pelvis XR:
No evidence of acute fracture or dislocation.
L Humerus XR:
Fracture of the proximal to mid shaft of the left humerus.
Lt Ankle and Foot XR:
There is a fracture through the distal left fibula without significant displacement.
Fracture involving the proximal base of the left fifth metatarsal bone, with mild distraction.
No prior hospitalist admission:
ASSESSMENT & PLAN
Acute Lt humerus fracture + left fibular fracture + left 5th metatarsal fracture due to mechanical fall
- Acute gait dysfunction - unable to function safely at home with multiple injuries.
- Lives with family
- Per ER - Ortho suggested splint placement to arm and boot with weight bearing as tolerated to foot and planning on seeing the patient as outpatient
- Fx set protocol for supportive care
- PT/OT
PMHX
Myeloma with chr leucopenia - Known to Dr Gong, middle of the secnd cycle of chemo ( next week ) - trend CBC
pHTN - c/w STEAM POWER PLANT OPERATOR Amlodipine with hold index for for SBP
Hypercholesterolemia: c/w STEAM POWER PLANT OPERATOR Atorvastatin
Hypothyroidism: STEAM POWER PLANT OPERATOR LT4
DVT Px:
Code: Full
OBS MS
--- NOTE | 2025-10-21 15:56 | CM ---
Chart reviewed and spoke with patient , and dtr Mariella
MONTES reviewed
Lives in a [address]
Independent with ADLs and ambulation
no DME
Dtr lives a couple of houses down
PCP Dr. Tonia Hoposn
Pharmacy [facility]
no hx of VN
no hx of SNF
DCP is to go home
Family can drive her home
Cm will continue to follow up for any dcp needs
[2025-10-21 16:45] VITALS: BP 139/61
[2025-10-21] MEDS: NON-FORMULARY ITEM 15 MG PO (18:10)
[2025-10-21] MEDS: ZOLOFT 50 MG PO (18:12)
[2025-10-21] MEDS: HEPARIN 5000 UNITS SC (18:18)
[2025-10-21] MEDS: OCUVITE SOFTGEL 1 CAP PO (21:07)
[2025-10-21] MEDS: ROXICODONE 5 MG PO (21:15)
[2025-10-21 23:05] VITALS: BP 140/53
[2025-10-22] VITALS (14 sets, daily range): BP systolic 75–132; BP diastolic 45–67
[2025-10-22] MEDS: HEPARIN 5000 UNITS SC ×3 (00:11→18:19)
[2025-10-22] MEDS: SYNTHROID 88 MCG PO (06:03)
--- NOTE | 2025-10-22 08:01 | W.PN.UPDATE ---
Update Note
Progress Note Update
Patient seen on AM rounds. Full consult note to follow. Tentative plan for OR today for left humeral shaft ORIF under the direction of Dr. Marion pending medical clearance. Consent signed and on patient chart. NPO for now. Abx ordered.
[2025-10-22] MEDS: ZOVIRAX 400 MG PO (09:06)
[2025-10-22] MEDS: THERAGRAN 1 TABLET PO (09:07)
[2025-10-22] MEDS: OSCAL CAL 500 500 MG PO ×3 (09:07→21:10)
[2025-10-22] MEDS: LIPITOR 40 MG PO (09:07)
[2025-10-22] MEDS: OCUVITE SOFTGEL 1 CAP PO ×2 (09:07→21:08)
--- NOTE | 2025-10-22 09:23 | CON.ORTHO ---
Consultation
-
Date/Time Consultation Requested: 10/21/2025; time unknown
Date/Time Consultation Performed: 10/22/2025; 0700
Requesting Provider: Dr. Weiss
Performing Provider: Candice Meyers PA-C for Dr. Selma Chowdhury
Reason for Consultation: Left humeral shaft fracture; Left fifth metatarsal fracture
Consultation - Orthopedics
History
Ms. Selby is an 80 year old female with PMH of hypertension, hyperlipidemia, GERD, depression and multiple myeloma seen today following a fall. She reports she tripped and fell at home and fell forward into a chair. She reports immediate onset of pain
in her left arm and foot. Her family was able to get her up off the ground and transported to ED. X-rays in the emergency department revealed fractures of the distal fibula and base of the fifth metatarsal, as well as a fracture of her humerus.
She was placed in a coaptation splint and a CAM boot in the ED. She is resting comfortably in bed this morning. She reports the pain in her foot and ankle is well controlled at present, but she does continue with pain with any movement of her left
arm. She denies pain elsewhere.
She lives at home with her and reports her daughter lives nearby. She denies PMH of DVT, CVA, PR or DM. She is currently receiving treatment for multiple myeloma. She denies known history of difficulty with anesthesia. She does not take any
daily blood thinners.
Allergies / Home Medications
Allergy/AdvReac Type Severity Reaction Status Date / Time
No Known Allergies Allergy Verified 10/21/25 09:06
�Medication �Instructions �Recorded
amlodipine 5 mg tablet (Norvasc) 5 mg PO DAILY Blood Pressure 11/23/23
atorvastatin 40 mg tablet (Lipitor) 40 mg PO DAILY High Cholesterol 11/23/23
levothyroxine 88 mcg tablet 88 mcg PO DAILY Thyroid 11/23/23
(Synthroid)
sertraline 50 mg tablet 50 mg PO QPM Mental Health/Anxiety 11/23/23
therapeutic multivitamin 1 tab PO DAILY Supplement 11/23/23
vitamins A,C,F-deig-qvvkdf 2,148 1 tab PO BID Supplement 11/23/23
mcg-113 mg-45 mg-17.4 mg tablet
(PreserVision AREDS)
acyclovir 400 mg tablet 400 mg PO DAILY infection 10/21/25
prevention
calcium 600 mg capsule 600 mg PO TID Supplement 10/21/25
dexamethasone 4 mg tablet 4 mg PO DIRECTED Cancer 10/21/25
lenalidomide 15 mg capsule 15 mg PO DIRECTED Cancer 10/21/25
Vital Signs / Lab Results
Temp Pulse Resp BP Pulse Ox
98.4 F 72 17 132/49 97
10/22/25 07:36 10/22/25 07:36 10/22/25 07:36 10/22/25 07:36 10/22/25 07:36
10/21/25 13:49
10/21/25 13:49
XR Foot and Ankle IMPRESSION:
There is a fracture through the distal left fibula without significant displacement.
Fracture involving the proximal base of the left fifth metatarsal bone, with mild distraction.
XR Left Humerus IMPRESSION:
Fracture of the proximal to mid shaft of the left humerus.
Directed exam of the left upper extremity reveals splint and sling in place. Good color and warmth of fingers. Patient able to wiggle fingers, flex and extend wrist. Sensation intact to light touch. Capillary refill <2 seconds.
Directed exam of the left lower extremity reveals edema and ecchymosis about the left foot and ankle. Tenderness to palpation over the distal fibula, ATFL and base of the fifth metatarsal. Sensation intact to light touch. Capillary refill <2
seconds.
Assessment / Plan
Left humeral shaft fracture
--Unfortunately, Jolanta sustained a fracture of her left humeral shaft in her fall. I recommend proceeding with open reduction internal fixation of her fracture. The risks, benefits, alternatives, recovery process and potential complications were
discussed in detail. She verbalized understanding and would like to proceed with surgery. Surgical and blood consents are signed and on patient chart. We are tentatively planned for surgery this afternoon under the direction of Dr. Marion pending
medical clearance.
--NPO until surgery.
--Maintain splint to LUE. Sling for immobilization and comfort.
--Pain control prn. Ice for edema control.
--Abx ordered to OR.
Left distal fibula and base of the fifth metatarsal fracture
--Both of these fractures are nondisplaced and can be managed without surgery. Patient may be weight bearing as tolerated in her CAM boot. Could consider a cane for ambulation assistance in right hand. Patient would likely benefit from PT/OT while
admitted.
--Pain control prn. Ice and elevation for pain and edema control.
--Outpatient follow up in 2 weeks for repeat x-rays for position check.
--- NOTE | 2025-10-22 09:50 | W.PN.HOSP.TC ---
Today's Communication/Plan
-
.
Assessment / Plan
Assessment / Plan
Physical Exam
General: chronically ill looking, not in respiratory distress.
HEENT: Normocephalic, Moist mucous membranes, PERRLA, Nose Appears Normal and Ears Appear Normal
Respiratory: Clear and Non Labored Respirations; No Wheezes, Rales or Rhonchi
Cardiac: Regular Rhythm; No Murmur, Rub, Gallop or Peripheral Edema
GI: Soft, Non Tender, Non Distended and Normal Bowel Sounds
Musculoskeletal: No Clubbing, No Cyanosis and Other (left upper extremity splint and sling in place; Left lower extremity boot in place )
Skin: Warm
Neuro: Awake and AO to self and surroundings,
Psych: Calm and Intact Judgment/Insight
# Left humeral shaft fracture
Maintain splint to LUE. Sling for immobilization and comfort.
will need surgery
d/w ortho, appreciate help
# Preop evaluation
Patient denied previous problem with anesthesia. No chest pain. No anginal symptoms. No history of heart failure or coronary disease per patient.
Order EKG, no acute ischemic changes.
Benefit of surgery outweigh risks.
No prohibitive factors to surgery
#Left distal fibula and base of the fifth metatarsal fracture
Reviewed imaging studies. She follows with orthopedic. Her fractures are nonoperative., Recommend weightbearing as tolerated in cam boot. Pain control as needed
# Hyponatremia
# leukopenia due to lenalidomide.
# Essential hypertension
patient reports has been on hold as she has been more hypotensive during treatments, last took about 6 weeks ago
- hold amlodipine
- monitor VS
#hyperlipidemia
- continue atorvastatin
#hypothyroidism
- continue levothyroxine
#depression
- continue sertraline
#multiple myeloma
follows with Dr. Billy
middle of second round of treatment
- continue acyclovir
- Discussed with her oncologist, she is not on a regular steroid dose. No need for steroid stress dose.
- continue to follow up out patient
#GERD
#macular degeneration
#iron deficiency anemia
Total time spent to see the patient, examine the patient, review data and lab results, discuss treatment plan with patient, nursing staff around 55 minutes�
Anticipated Discharge: > 48 hours
Subjective/Interval History
-
Date of Service: October 22, 2025
No chest pain
No sob
No fevers
Objective Data
-
Vital Signs:
Vital Signs
Temp Pulse Resp BP Pulse Ox
98.4 F 72 17 132/49 97
10/22/25 07:36 10/22/25 07:36 10/22/25 07:36 10/22/25 07:36 10/22/25 07:36
I&O
10/21/25 10/22/25 10/23/25
06:59 06:59 06:59
Output Total 350 / 350
Balance -350 / -350
--- NOTE | 2025-10-22 14:26 | CM ---
CM following re: discharge planning.
Reviewed pt's chart, spoke to pt's over the phone. Pt is in OR.
Per UR CM, pt is upgraded to inpatient admission. IMM reviewed, placed on chart, pt has a copy.
PT and OT will evaluate the pt to determine a level of care at discharge. Pt most likely will needs SNF level of care and pt's stated he will discuss it after the holiday on Monday.
D/C plan: most likely SNF. Pt's preferred to discuss it on Monday after PT/OT evaluations.
[2025-10-22] MEDS: NON-FORMULARY ITEM 15 MG PO (18:18)
[2025-10-22] MEDS: ZOLOFT 50 MG PO (18:19)
--- NOTE | 2025-10-22 18:32 | PTCARENOTE ---
Pt returned to [facility] in a bed. Left shoulder dressing with scant sanguineous drainage and immobilizer. 97% on 2L. Bed locked and in lowest position. Care ongoing.
[2025-10-22] MEDS: ANCEF 5 IV (21:09)
[2025-10-23] MEDS: HEPARIN 5000 UNITS SC ×2 (00:18→08:20)
[2025-10-23 03:00] VITALS: BP 116/59
[2025-10-23] MEDS: SYNTHROID 88 MCG PO (06:29)
[2025-10-23] MEDS: ANCEF 5 IV (06:29)
[2025-10-23 07:35] VITALS: BP 115/44
[2025-10-23 08:15] LABS: Hematocrit 33.1 % (37.0-47.0); Hemoglobin 10.7 g/dL (12.0-16.0); Mean Corp Hgb Conc. 32.3 g/dL (33.0-37.0); Mean Corpuscular Volume 96.2 fL (81.0-99.0); Platelet Count 183 10^3/uL (130-400); Red Cell Dist. Width 15.2 % (11.5-14.5)
[2025-10-23] MEDS: LIPITOR 40 MG PO (08:19)
[2025-10-23] MEDS: OCUVITE SOFTGEL 1 CAP PO (08:19)
[2025-10-23] MEDS: ZOVIRAX 400 MG PO (08:19)
[2025-10-23] MEDS: THERAGRAN 1 TABLET PO (08:19)
[2025-10-23] MEDS: OSCAL CAL 500 500 MG PO (08:20)
[2025-10-23 08:38] LABS: Blood Urea Nitrogen 9 mg/dl (7-17); Calcium 8.4 mg/dl (8.4-10.2); Carbon Dioxide 28 mmol/L (22-30); Chloride 102 mmol/L (98-107); Estimated Creatinine Clearance 72 ml/min; Glucose 96 mg/dl (70-99); Potassium 3.8 mmol/L (3.5-5.1); Sodium 135 mmol/L (135-145); eGFR > 60.00
--- NOTE | 2025-10-23 10:08 | W.PN.HOSP.TC ---
Addendum entered and electronically signed by Tyrone Nguyễn MD 10/23/25 13:24:
Addendum
Patient was seen by PT/OT. She did well and ok for home discharge. Nurse reached out ( Patient is requesting to go home). She has appointment with Dr. Billy every . Given prescription to repeat CBC & BMP blood work.
Total discharge time spent to see the patient, examine the patient, review data and lab results, discuss discharge plan with patient, nursing staff around 65 minutes�
Original Note:
Today's Communication/Plan
-
Repeat CBC with Diff in AM
Assessment / Plan
Assessment / Plan
Physical Exam
General: chronically ill looking, not in respiratory distress.
HEENT: Normocephalic, Moist mucous membranes, PERRLA, Nose Appears Normal and Ears Appear Normal
Respiratory: Clear and Non Labored Respirations; No Wheezes, Rales or Rhonchi
Cardiac: Regular Rhythm; No Murmur, Rub, Gallop or Peripheral Edema
GI: Soft, Non Tender, Non Distended and Normal Bowel Sounds
Musculoskeletal: No Clubbing, No Cyanosis and Other (left upper extremity splint and sling in place; Left lower extremity boot in place )
Skin: Warm
Neuro: Awake and AO to self and surroundings,
Psych: Calm and Intact Judgment/Insight
# Left humeral shaft fracture
s/p Open reduction, internal fixation by Dr Perry on 10/22. No complications reported.
Maintain splint to LUE. Sling for immobilization and comfort.
DVT prophylaxis with SQ heparin for now
d/w ortho, appreciate help
#Left distal fibula and base of the fifth metatarsal fracture
Reviewed imaging studies. She follows with orthopedic. Her fractures are nonoperative., Recommend weightbearing as tolerated in cam boot. Pain control as needed
# Hyponatremia
# leukopenia due to lenalidomide.
her WBC went down, no fevers
repeat CBC with Diff
# Essential hypertension
patient reports has been on hold as she has been more hypotensive during treatments, last took about 6 weeks ago
- hold amlodipine
- monitor VS
#hyperlipidemia
- continue atorvastatin
#hypothyroidism
- continue levothyroxine
#depression
- continue sertraline
#multiple myeloma
follows with Dr. Billy
middle of second round of treatment
- continue acyclovir
- Discussed with her oncologist, she is not on a regular steroid dose. No need for steroid stress dose.
- continue to follow up out patient
#GERD
#macular degeneration
#iron deficiency anemia
Total time spent to see the patient, examine the patient, review data and lab results, discuss treatment plan with patient, nursing staff around 55 minutes�
Anticipated Discharge: 24 - 48 hours
Subjective/Interval History
-
Date of Service: October 23, 2025
No chest pain
No sob
No fevers
Objective Data
-
Labs:
Laboratory Results
10/23/25
07:39
WBC 1.9 L*
Hgb 10.7 L
Hct 33.1 L
Plt Count 183
Sodium 135
Potassium 3.8
Chloride 102
Carbon Dioxide 28
BUN 9
Creatinine 0.6
Glucose 96
Calcium 8.4
Vital Signs:
Vital Signs
Temp Pulse Resp BP Pulse Ox
97.8 F 70 16 115/44 97
10/23/25 07:35 10/23/25 07:35 10/23/25 07:35 10/23/25 07:35 10/23/25 07:35
I&O
10/22/25 10/23/25 10/24/25
06:59 06:59 06:59
Intake Total 680 / 680
Output Total 350 / 350
Balance -350 / -350 680 / 680
[2025-10-23 11:15] VITALS: BP 118/50; PULSE 71; O2SAT 98
[2025-10-23 11:28] VITALS: BP 118/50; PULSE 70; O2SAT 96
[2025-10-23 11:33] VITALS: BP 116/51
--- NOTE | 2025-10-23 13:50 | W.DCSUMMARY ---
Discharge Summary
Discharge Data
Date of Admission: 10/21/25
Date of Discharge: 10/23/25
-
Pending Results: No
Hospital Course
80 years old female presented after a fall. She sustained left humeral fracture. Patient was evaluated by orthopedic. She underwent open reduction internal fixation without complication by Dr. Marion. Patient was started on oral aspirin therapy
for DVT prophylaxis. She was noted to have leukopenia which seems to be chronic. Patient did not have fever. She was able to tolerate diet and was hemodynamically stable. Patient was given a prescription to do blood work and follow-up with her
primary oncologist Dr. Billy as patient is under treatment for multiple myeloma. Patient was evaluated by physical therapy and recommended home care services. Patient was discharged home in a stable condition.
Discharge Plan
-
Patient Disposition: Home with Home Care
Discharge Diagnosis/Procedures: Left spiral humeral shaft fracture s/p Open reduction, internal fixation by DR Marion on 10/22
Ortho recommended :
Nonweightbearing, left upper extremity. Encourage digital range of motion. Follow up in 10-14 days for clinical examination and suture
removal.
Take aspirin 325 mg twice daily with food for 3 weeks for deep venous thrombosis prophylaxis
Diet: As tolerated
Referrals:
Tonia Hopson PA-C [Family Provider, Internal Medicine]
Dinesh Marion MD [Active, Orthopedics] - in one to two weeks
Prescriptions:
New
aspirin 325 mg tablet
325 mg PO BID Qty: 42 0RF
acetaminophen [Tylenol Extra Strength] 500 mg tablet
1,000 mg PO Q6H PRN (Reason: fever or pain) Qty: 10 0RF
Continued
atorvastatin [Lipitor] 40 mg Tablet
40 mg PO DAILY
amlodipine [Norvasc] 5 mg Tablet
5 mg PO DAILY
Rx Instructions:
on hold
levothyroxine [Synthroid] 88 mcg Tablet
88 mcg PO DAILY
sertraline 50 mg Tablet
50 mg PO QPM
therapeutic multivitamin Tablet
1 tab PO DAILY
PreserVision AREDS 2,148 mcg-113 mg-45 mg-17.4mg Tablet
1 tab PO BID
acyclovir 400 mg Tablet
400 mg PO DAILY
dexamethasone 4 mg Tablet
4 mg PO DIRECTED
Rx Instructions:
take one tablet the day of treat, 2 days after (due monday and monday)
lenalidomide 15 mg Capsule
15 mg PO DIRECTED
Rx Instructions:
take for 21 days on and 7 days off, patient takes around dinner time
calcium 600 mg Capsule
600 mg PO TID
Discharge Orders:
Discharge Patient (As Directed); Ordered 10/23/25
Ordered By: Tyrone Nguyễn
Discharge Date and Time
Print Language: TAJIK
--- NOTE | 2025-10-23 14:30 | CM ---
MD entered order for discharge.
PT OT indicated VN
Spoke with and pt offered VN they requested [facility] ,
Referral made in care port for [facility].
Franky will drive her home.
PLAN Home with [facility]
--- NOTE | 2025-10-23 14:39 | W.PN.UPDATE ---
Update Note
Progress Note Update
POD#1 from left humerus shaft ORIF
Pain well controlled
Intact AROM of wrist and all digits. Sensation intact. Hand is well perfused
Sling. ROM of hand, wrist elbow
Follow up in the office in 2 weeks
== END 2025-10-23 14:45 | disposition home health service (06) | DRG 493 ==
LOC: 2 SOUTH 09:50
PROVIDERS: Orthopaedic Surgery Hand Surgery; Physician Assistant; ADMITTING PHYSICIAN Internal Medicine; ATTENDING PHYSICIAN Internal Medicine; CONSULT PHYSICIAN Orthopaedic Surgery; EMERGENCY PHYSICIAN Emergency Medicine; FAMILY PHYSICIAN Physician Assistant
PROC: 0PSG04Z Reposition Left Humeral Shaft with Internal Fixation Device, Open Approach (ICD-10-PCS; 2025-10-22)
DX: S42.302A Unspecified fracture of shaft of humerus, left arm, initial encounter for closed fracture (principal); C90.00 Multiple myeloma not having achieved remission; D72.819 Decreased white blood cell count, unspecified; K21.9 Gastro-esophageal reflux disease without esophagitis; F32.A Depression, unspecified; I10 Essential (primary) hypertension; H35.30 Unspecified macular degeneration; D50.9 Iron deficiency anemia, unspecified; Z79.890 Hormone replacement therapy; Z79.899 Other long term (current) drug therapy; S82.832A Other fracture of upper and lower end of left fibula, initial encounter for closed fracture; S92.352A Displaced fracture of fifth metatarsal bone, left foot, initial encounter for closed fracture; E78.00 Pure hypercholesterolemia, unspecified; W01.190A Fall on same level from slipping, tripping and stumbling with subsequent striking against furniture, initial encounter
CPT/HCPCS: 29125; 29515; 73060; 73502; 73610; 73630; 76000; 80048; 80053; 85025; 85027; 93005; 96374; 96376; 97162; 97167; 99285; C1713

== ENCOUNTER → 2025-10-29 07:42 | Outpatient (REF) | payer MEDICARE, OTHER, SELFPAY ==
[2025-10-29 08:29] LABS: Hematocrit 35.1 % (37.0-47.0); Hemoglobin 10.8 g/dL (12.0-16.0); Mean Corp Hgb Conc. 30.8 g/dL (33.0-37.0); Mean Corpuscular Volume 103.5 fL (81.0-99.0); Nucleated Red Blood Cells % 0.8 %; Platelet Count 352 10^3/uL (130-400); Red Cell Dist. Width 15.6 % (11.5-14.5)
[2025-10-29 09:13] LABS: ALT (SGPT) 31 U/L (0-35); AST (SGOT) 23 U/L (14-36); Albumin 3.6 g/dl (3.5-5.0); Alkaline Phosphatase 78 U/L (38-126); Blood Urea Nitrogen 11 mg/dl (7-17); Calcium 8.4 mg/dl (8.4-10.2); Carbon Dioxide 26 mmol/L (22-30); Chloride 106 mmol/L (98-107); Glucose 92 mg/dl (70-99); Potassium 4.1 mmol/L (3.5-5.1); Sodium 136 mmol/L (135-145); Total Protein 5.8 g/dl (6.3-8.2); eGFR > 60.00
== END ==
LOC: REG 07:42
PROVIDERS: ATTENDING PHYSICIAN Internal Medicine; FAMILY PHYSICIAN Internal Medicine Hematology & Oncology
DX: C90.00 Multiple myeloma not having achieved remission (principal); D72.819 Decreased white blood cell count, unspecified; D50.8 Other iron deficiency anemias; D51.9 Vitamin B12 deficiency anemia, unspecified; R63.4 Abnormal weight loss; R10.9 Unspecified abdominal pain; D64.9 Anemia, unspecified
CPT/HCPCS: 36415; 80053; 85025

== ENCOUNTER → 2025-11-07 13:27 | Outpatient (REF) | payer MEDICARE, OTHER, SELFPAY ==
[2025-11-07 14:13] LABS: Hematocrit 34.3 % (37.0-47.0); Hemoglobin 11.0 g/dL (12.0-16.0); Mean Corp Hgb Conc. 32.1 g/dL (33.0-37.0); Mean Corpuscular Volume 95.5 fL (81.0-99.0); Nucleated Red Blood Cells % 0 %; Platelet Count 363 10^3/uL (130-400); Red Cell Dist. Width 15.2 % (11.5-14.5)
[2025-11-07 14:49] LABS: ALT (SGPT) 17 U/L (0-35); AST (SGOT) 17 U/L (14-36); Albumin 3.6 g/dl (3.5-5.0); Alkaline Phosphatase 99 U/L (38-126); Blood Urea Nitrogen 7 mg/dl (7-17); Calcium 8.5 mg/dl (8.4-10.2); Carbon Dioxide 23 mmol/L (22-30); Chloride 101 mmol/L (98-107); Glucose 113 mg/dl (70-99); Potassium 4.0 mmol/L (3.5-5.1); Sodium 133 mmol/L (135-145); Total Protein 6.0 g/dl (6.3-8.2); eGFR > 60.00
== END ==
LOC: REG 13:27
PROVIDERS: ATTENDING PHYSICIAN Internal Medicine Hematology & Oncology; FAMILY PHYSICIAN Physician Assistant
DX: D50.8 Other iron deficiency anemias (principal); D51.9 Vitamin B12 deficiency anemia, unspecified; R63.4 Abnormal weight loss; R10.9 Unspecified abdominal pain; D64.9 Anemia, unspecified; C90.00 Multiple myeloma not having achieved remission
CPT/HCPCS: 36415; 80053; 85025

== ENCOUNTER → 2025-11-13 07:29 | Outpatient (REF) | payer MEDICARE, OTHER, SELFPAY ==
[2025-11-13 08:08] LABS: Hematocrit 34.4 % (37.0-47.0); Hemoglobin 11.2 g/dL (12.0-16.0); Mean Corp Hgb Conc. 32.6 g/dL (33.0-37.0); Mean Corpuscular Volume 96.4 fL (81.0-99.0); Nucleated Red Blood Cells % 0 %; Platelet Count 359 10^3/uL (130-400); Red Cell Dist. Width 14.9 % (11.5-14.5)
[2025-11-13 08:26] LABS: ALT (SGPT) 17 U/L (0-35); AST (SGOT) 16 U/L (14-36); Albumin 3.6 g/dl (3.5-5.0); Alkaline Phosphatase 92 U/L (38-126); Blood Urea Nitrogen 6 mg/dl (7-17); Calcium 8.3 mg/dl (8.4-10.2); Carbon Dioxide 26 mmol/L (22-30); Chloride 102 mmol/L (98-107); Glucose 101 mg/dl (70-99); Potassium 3.7 mmol/L (3.5-5.1); Sodium 136 mmol/L (135-145); Total Protein 6.1 g/dl (6.3-8.2); eGFR > 60.00
== END ==
LOC: REG 07:29
PROVIDERS: ATTENDING PHYSICIAN Internal Medicine Hematology & Oncology; FAMILY PHYSICIAN Physician Assistant
DX: D50.8 Other iron deficiency anemias (principal); D51.9 Vitamin B12 deficiency anemia, unspecified; R63.4 Abnormal weight loss; R10.9 Unspecified abdominal pain; D64.9 Anemia, unspecified; C90.00 Multiple myeloma not having achieved remission
CPT/HCPCS: 36415; 80053; 85025

== ENCOUNTER → 2025-11-19 10:29 | Outpatient (REF) | payer MEDICARE, OTHER, SELFPAY ==
[2025-11-19 11:05] LABS: Hematocrit 35.3 % (37.0-47.0); Hemoglobin 11.2 g/dL (12.0-16.0); Mean Corp Hgb Conc. 31.7 g/dL (33.0-37.0); Mean Corpuscular Volume 97.0 fL (81.0-99.0); Nucleated Red Blood Cells % 0 %; Platelet Count 379 10^3/uL (130-400); Red Cell Dist. Width 15.2 % (11.5-14.5)
[2025-11-19 11:28] LABS: ALT (SGPT) 18 U/L (0-35); AST (SGOT) 16 U/L (14-36); Albumin 3.3 g/dl (3.5-5.0); Alkaline Phosphatase 97 U/L (38-126); Blood Urea Nitrogen 9 mg/dl (7-17); Calcium 8.4 mg/dl (8.4-10.2); Carbon Dioxide 27 mmol/L (22-30); Chloride 100 mmol/L (98-107); Glucose 91 mg/dl (70-99); Potassium 4.2 mmol/L (3.5-5.1); Sodium 134 mmol/L (135-145); Total Protein 5.6 g/dl (6.3-8.2); eGFR > 60.00
== END ==
LOC: REG 10:29
PROVIDERS: ATTENDING PHYSICIAN Internal Medicine Hematology & Oncology; FAMILY PHYSICIAN Physician Assistant
DX: D50.8 Other iron deficiency anemias (principal); D51.9 Vitamin B12 deficiency anemia, unspecified; R63.4 Abnormal weight loss; R10.9 Unspecified abdominal pain; D64.9 Anemia, unspecified; C90.00 Multiple myeloma not having achieved remission
CPT/HCPCS: 36415; 80053; 85025

== ENCOUNTER → 2025-11-26 07:23 | Outpatient (REF) | payer MEDICARE, OTHER, SELFPAY ==
[2025-11-26 08:41] LABS: Hematocrit 35.4 % (37.0-47.0); Hemoglobin 11.4 g/dL (12.0-16.0); Mean Corp Hgb Conc. 32.2 g/dL (33.0-37.0); Mean Corpuscular Volume 95.4 fL (81.0-99.0); Nucleated Red Blood Cells % 0 %; Platelet Count 442 10^3/uL (130-400); Red Cell Dist. Width 15.0 % (11.5-14.5)
[2025-11-26 09:03] LABS: ALT (SGPT) 18 U/L (0-35); AST (SGOT) 20 U/L (14-36); Albumin 3.7 g/dl (3.5-5.0); Alkaline Phosphatase 89 U/L (38-126); Blood Urea Nitrogen 9 mg/dl (7-17); Calcium 8.4 mg/dl (8.4-10.2); Carbon Dioxide 23 mmol/L (22-30); Chloride 107 mmol/L (98-107); Glucose 92 mg/dl (70-99); Potassium 4.3 mmol/L (3.5-5.1); Sodium 136 mmol/L (135-145); Total Protein 5.8 g/dl (6.3-8.2); eGFR > 60.00
== END ==
LOC: REG 07:23
PROVIDERS: ATTENDING PHYSICIAN Internal Medicine Hematology & Oncology
DX: D50.8 Other iron deficiency anemias (principal); D51.9 Vitamin B12 deficiency anemia, unspecified; R63.4 Abnormal weight loss; R10.9 Unspecified abdominal pain; D64.9 Anemia, unspecified; C90.00 Multiple myeloma not having achieved remission
CPT/HCPCS: 36415; 80053; 85025